=== PATIENT | male | born 1985 | race Caucasian/White ===

== ENCOUNTER 2023-02-04 08:46 | Emergency (ER) | payer OTHER, SELFPAY ==
--- NOTE | ~2023-02-04 | XR_ITS ---
XR chest 2V DATE: 02/04/2023 09:15 INDICATION: Cough, congestion TECHNIQUE: 2 views COMPARISON: 11/23/2009 2 view chest FINDINGS: There is an approximately 4 cm cavitary lesion in the left lung apex. Otherwise no pulmonary infiltrate or consolidation or mass density. No hilar or mediastinal enlargeme nt. Bilateral hyperinflation. No pleural effusion or pneumothorax. Normal heart size. There is mild levoscoliosis of the upper thoracic spine. There is mild lower thoracic dextroscoliosi s. IMPRESSION: Cavitary lesion of left lung apex; differential diagnosis includes infectious, neoplastic or inflammatory etiology Bilateral hyperinflation suggesting obstructive airways disease Reviewed, dictated and finalized at location L.
--- NOTE | 2023-02-04 08:48 | ED.SOB ---
HPI - SOB/Dyspnea General Chief Complaint: Upper Respiratory Infection Stated Complaint: Pneumonia symptoms Time Seen by Provider: 02/04/23 08:47 Source: patient Mode of arrival: ambulatory Limitations: no limitations History of Present Illness HPI Narrative: Mr. Alcazar is a 37-year-old male patient presenting to the clinic today with complaints of possible pneumonia. He reports he is having some left-sided thoracic back pain with inspiration, productive cough with dark brown phlegm, fatigue, and decreased appetite. No recent weight loss. No known fever or chills per patient. States he has had fatigue for the past 5 days but has gradually gotten worse the past 2 days. No known exposure to anyone with COVID, flu, or strep. Rates pain 5-10 currently. Smokes THC daily. Related Data Home Medications Medication Instructions Recorded Confirmed No Home Medications 02/04/23 02/04/23 Allergies Allergy/AdvReac Type Severity Reaction Status Date / Time NKDA Allergy Mild Other Uncoded 02/04/23 09:02 Review of Systems Review of Systems: Pertinent positives per HPI. Patient denies any fever, chills, rash, headache, visual changes, dizziness, chest pain, palpitations, nausea, vomiting, diarrhea, constipation, abdominal pain, or any urinary issues. PMFSH Comments At the time of my signature, I reviewed and agree with the nursing past medical, surgical, social, and family history. There is no relevant family history pertinent to the patient complaint. Exam Narrative: General: Well-developed, thin, in no apparent distress, non toxic appearing Head: Normocephalic, atraumatic Eyes: Pupils equally round and reactive to light bilaterally, EOM intact, sclera and conjunctive clear, no discharge, lids normal Ears: TMs intact and clear, ear canals clear, no drainage, grossly hearing normal. Nose: Nares patent, no discharge, no inflammation, no sinus tenderness. Mouth: Oral pharynx without lesions or masses, good dentition, MMM. Neck: Supple, trachea midline, no enlargement of anterior or posterior cervical nodes, no thyroid masses or goiter palpable. Cardio: Tachycardic-Regular rate and rhythm, s1 and s2 normal, no murmur appreciated. Resp: Lung sounds diminished with faint crackle to the left posterior lobe, no rhonchi, wheezing or rubs Course Course Emergency Course: Portions of this record may have been created with voice recognition software. Level of Care: Express Care Visit Vital Signs Vital signs: Vital signs reviewed Transfer Transfered to: [facility] Transportation: Other (private car) Transfer rationale: Cough with purulent sputum, mild shortness of breath, fatigue, decrease appetite, cavitary lesion to left lung apex. Differential dx- infection, inflammation, or neoplastic. Accepting physician: Dr. Gaviria Transfer comments: transfer via private car. MDM - SOB/Dyspnea MDM Narrative Medical decision making narrative: At the time of visit patient is resting comfortably on exam table. COVID testing was negative in the clinic today. Chest x-ray was shows a cavitary lesion measuring approximately 4 cm to the left lung apex with differential diagnoses of infection, neoplastic, or inflammatory condition. Does show COPD changes as well. He has a productive cough with purulent phlegm, fatigue, decreased appetite, and thoracic back pain with inspiration. Patient does not have a primary care provider. Recommend transfer to the ER for CT and labs to r/o differentials. Patient agrees to transfer. Would like to be transferred to [facility]. Contacted charge nurse Haider and report was given for continuity of care. Dr. Gaviria accepts patient for transfer. Differential Diagnosis Differential diagnosis: Likely acute exacerbation of chronic obstructive airways disease, congestive heart failure, community acquired pneumonia, asthma with exacerbation, pulmonary embolism and other (COVID) Imaging Data Radiologist's im
[2023-02-04 09:05] VITALS: BP 119/84; PULSE 109; RESP 16; TEMP 36.7; O2SAT 98
== END 2023-02-04 09:50 | disposition short-term general hospital (02) ==
PROVIDERS: Emergency Provider Nurse Practitioner Family
DX: R06.02 Shortness of breath (principal); R05.9 Cough, unspecified; M54.6 Pain in thoracic spine; R91.1 Solitary pulmonary nodule; Z20.822 Contact with and (suspected) exposure to COVID-19
CPT/HCPCS: 71046; 87426; 99212; C9803; G0463

== ENCOUNTER 2023-02-04 10:16 | Inpatient (IN) | payer OTHER, SELFPAY ==
[2023-02-04] VITALS (11 sets, daily range): BP systolic 115–133; BP diastolic 58–87; PULSE 87–102; RESP 16–18; TEMP 36.8–38.1; O2SAT 96–100; BMI 21.4
--- NOTE | ~2023-02-04 | CT_ITS ---
EXAMINATION:CT diagnostic chest wo con DATE: 02/04/2023 18:15 INDICATION: Left lung cavitary mass. TECHNIQUE: Computed tomography (CT) of the chest was performed without intravenous contrast. Automate d exposure control and iterative reconstruction technique were employed. The dose-length product (DLP ) was 170.31 mGy-cm. COMPARISON: Chest 2 views 02/04/2023 FINDINGS: There is mild atelectasis in the lower lobes. There is a thick-walled cavitary mass in left lung upper lobe with surrounding groundglass opacities. There is a trace left pleural effusion. The heart size is normal. No pericardial effusion. There is material in the esophagus. There is a 2.8 cm mass in right adrenal gland measuring low-attenuation, consistent with an adenoma. There is levoscoli osis of upper thoracic spine. IMPRESSION: 1. Thick-walled cavitary mass in left lung upper lobe with surrounding groundglass opacities, most li [place] cavitary pneumonia. Malignancy is less likely. Follow-up radiographs are recommended to confirm resolution. Reviewed, dictated and finalized at location E. IMPRESSION: 1. Thick-walled cavitary mass in left lung upper lobe with surrounding groundgl ass opacities, most likely cavitary pneumonia. Malignancy is less likely. Follo w-up radiographs are recommended to confirm resolution.
--- NOTE | ~2023-02-04 | XR_ITS ---
Portable chest x-ray Comparison: 02/04/2023 Clinical History: Cavitary lesion Findings: Left upper lobe cavitary lesion is without significant interval change from prior exam. Ri ght lung remains clear. Cardiomediastinal silhouette is stable. Bones and soft tissues are unremarka ble. Impression: Left upper lobe cavitary lesion, essentially stable from prior exam. Reviewed, dictated and finalized at location . Impression: Left upper lobe cavitary lesion, essentially stable from prior exam.
--- NOTE | 2023-02-04 10:29 | ECG_ITS ---
Measurements Intervals [place] Rate: 85 P: 82 NJ: 161 QRS: 91 QRSD: 84 T: 45 QT: 352 QTc: 421 Interpretive Statements SINUS RHYTHM LEFT ATRIAL ENLARGEMENT [-0.15mV P WAVE IN V1/V2] BORDERLINE RIGHT AXIS DEVIATION [QRS AXIS > 90] POSSIBLE RIGHT VENTRICULAR CONDUCTION DELAY [RSR (QR) IN V1/V2] NO PREVIOUS ECG AVAILABLE FOR COMPARISON Electronically Signed On 02-04-2023 15:04:41 CDT by Marcello Kirby M.D.
[2023-02-04 11:36] LABS: Basophils Absolute Auto 0.1 K/mm3 (0.0-0.1); Basophils Percent Auto 0.6 % (0.2-1.2); Eosinophils Percent Auto 0.1 % (0-4.4); Hematocrit 44.3 % (42.0-52.0); Hemoglobin 14.5 g/dL (14.0-18.0); Immature Granulocyte Percent A 0.6 % (0-0.5); Mean Corpuscular HGB Conc 32.7 g/dl (32-36); Mean Corpuscular Hemoglobin 30.1 pg (26-34); Mean Corpuscular Volume 92.1 fl (80-100); Mean Platelet Volume 9.2 fl (7.4-10.4); Monocytes Absolute Auto 1.5 K/mm3 (0.1-0.6); Monocytes Percent Auto 8.5 % (2.6-8.5); Neutrophils Absolute Auto 14.3 K/mm3 (1.3-6.7); Neutrophils Percent Auto 82.2 % (45.5-73.1); Platelet Count Result 305 k/mm3 (150-375); Red Blood Count 4.81 M/mm3 (4.6-6.20); Red Cell Distribution Width 11.9 % (11.5-14.5); White Blood Count 17.4 K/mm3 (4.5-10.0)
[2023-02-04 11:45] LABS: Anion Gap 10 mmol/L (8-16); Blood Urea Nitrogen 13 mg/dL (9-20); Carbon Dioxide 28 mmol/L (22-30); Chloride 95 mmol/L (98-107); Estimated CRCL calculation 94 ml/min; Potassium 4.1 mmol/L (3.4-5.0); Sodium 133 mmol/L (137-145)
[2023-02-04 11:46] LABS: Alanine Aminotransferase 17 U/L (6-50); Albumin Level 4.5 g/dL (3.5-5.1); Alkaline Phosphatase 80 U/L (38-126); Aspartate Amino Transferase 22 U/L (17-59); Bilirubin,Total 1.4 mg/dL (0.2-1.3); Estimated Glomerular Filt Rate > 60; Glucose 98 mg/dL (65-110)
--- NOTE | 2023-02-04 12:45 | ED.GENADULT ---
HPI - General Adult General Chief complaint: Recheck/Abnormal Lab/Rx Stated complaint: Cough, fatigue Time Seen by Provider: 02/04/23 12:05 Source: patient Mode of arrival: ambulatory Limitations: no limitations History of Present Illness HPI narrative: 37 years old white male drove himself to the emergency room complaining of fever, chills, decreased appetite, lethargy for the last 5 days with productive cough of dark sputum. Patient lives with asymptomatic family, history of GERD and acid reflux and aspiration pneumonia is suspected he does not smoke or drink but uses marijuana daily. Related Data Home Medications Medication Instructions Recorded Confirmed No Home Medications 02/04/23 02/04/23 Allergies Allergy/AdvReac Type Severity Reaction Status Date / Time NKDA Allergy Mild Other Uncoded 02/04/23 12:02 Review of Systems Review of Systems: All systems reviewed & are unremarkable except as noted in HPI and below Exam Narrative: General appearance: Well-developed, well-nourished Skin: Normal color Head: Normocephalic, nontraumatic Eyes: Clear conjunctiva ENT: Oropharynx normal, ears normal, nose normal Neck: Supple, nontender Chest and respiratory: Airway patent, no respiratory distress, no accessory muscle use Heart: Regular rate/rhythm Abdomen: Soft, nontender, no organomegaly, quiet bowel sounds Vascular: Normal peripheral pulses, normal capillary refill. Musculoskeletal: Normal range of motion, nontender back Neurologic: Alert and oriented ?3, PATIENT ACCESS REPRESENTATIVE is normal as tested, no gross motor deficit Course Course Emergency Course: Stable Reevaluation(s) Reevaluation #1: No new changes compared to on arrival Date: 02/04/23 Time: 13:12 Vital Signs Vital signs: Vital Signs Temperature 37.1 C 02/04/23 10:26 Pulse Rate 91 02/04/23 10:26 Respiratory Rate 16 02/04/23 10:26 Blood Pressure 115/71 02/04/23 10:26 Pulse Oximetry 100 02/04/23 10:26 Temperature 37.1 C 02/04/23 10:26 Pulse Rate 90 02/04/23 12:46 Respiratory Rate 16 02/04/23 12:46 Blood Pressure 133/82 02/04/23 12:46 Pulse Oximetry 97 02/04/23 12:46 Medical Decision Making [facility] Narrative Medical decision making narrative: Patient presents with fever, chills and a productive cough over the last 5 days, chest x-ray showed cavitary lesion at the right apex which could be infectious, malignancy, abscess. History of GERD, aspiration pneumonia is my concern versus abscess formation. Unasyn IV started, patient to be admitted to hospitalist Differential Diagnosis Differential Diagnosis: Pneumonia, abscess, malignancy, Medical Records Medical records reviewed: Yes I reviewed the external patient's medical records. Vital Signs Vital Signs: Vital Signs Temperature 37.1 C 02/04/23 10:26 Pulse Rate 91 02/04/23 10:26 Respiratory Rate 16 02/04/23 10:26 Blood Pressure 115/71 02/04/23 10:26 Pulse Oximetry 100 02/04/23 10:26 Temperature 37.1 C 02/04/23 10:26 Pulse Rate 90 02/04/23 12:46 Respiratory Rate 16 02/04/23 12:46 Blood Pressure 133/82 02/04/23 12:46 Pulse Oximetry 97 02/04/23 12:46 Lab Data Lab results reviewed: Yes I reviewed the patient's lab results. 02/04/23 11:26 02/04/23 11:26 Labs: Lab Results 02/04/23 Range/Units 11:26 WBC 17.4 H (4.5-10.0) K/mm3 RBC 4.81 (4.6-6.20) M/mm3 Hgb 14.5 (14.0-18.0) g/dL Hct 44.3 (42.0-52.0) % MCV 92.1 (80-100) fl MCH 30.1 (26-34) pg MCHC 32.7 (32-36) g/dl RDW 11.9 (11.5-14.5) % Plt Count 305 (150-375) k/mm3 MPV 9.2 (7.4-10.4) fl Immature Gran % (Auto) 0.6 H (0-0.5) %
[2023-02-04] MEDS: AZITHROMYCIN 500 MG/NS 250 ML 500 MG/250 ML BAG 250 MG IVPB (13:22)
[2023-02-04] MEDS: ALBUTEROL SULFATE NEB 2.5 MG/3 ML INH INHALATION ×2 (13:25→20:25)
[2023-02-04] MEDS: AMPICILLIN SULB 3 GM/NS 100 ML 3 GM/100 ML VIAL IVPB ×2 (14:41→21:10)
--- NOTE | 2023-02-04 15:47 | PM.IMHP ---
H&P: HPI History of Present Illness Date/Time: 02/04/23 15:00 Chief Complaint: Abnormal chest x-ray. Narrative: This is a pleasant 37-year-old male with longstanding history of GERD status post endoscopic treatment approximately 4 or 5 years ago who presented to the emergency department for evaluation of an abnormal chest x-ray. The patient provides the following history. He has not felt well for approximately 5 days with generalized malaise, decreased energy, and chills. Yesterday he developed several other symptoms to include cough productive of dark brown phlegm, left-sided pleuritic chest pain, poor appetite, drenching sweats, and fever to 103?. He was seen at urgent care today where chest x-ray showed a cavitary lesion in the left apex and he was referred to the ED for further evaluation. COVID test was negative. WBC count was 17.4. He was given a dose of azithromycin and ceftriaxone and he is being admitted in this setting for further treatment of presumed cavitary pneumonia. With further questioning he denies sick contacts, recent travel, overseas travel, weight loss, hemoptysis, exposure to tuberculosis, broken teeth, and known dental caries. He continues to have ongoing issues with GERD and reports frequent regurgitation even at nighttime. He cannot recall a time recently when he aspirated however. Review of Systems Review of Systems: Twelve systems were reviewed and are negative except for as per HPI. [facility] Past Medical History Medical History (Updated 02/04/23 @ 20:42 by Julianna Mancia PA-C) Gastroesophageal reflux disease Surgical History Surgical History (Updated 02/04/23 @ 20:38 by Julianna Mancia PA-C) History of endoscopy Patient reportedly had endoscopic treatment for GERD about 5 years ago. Family History Family History Grandparent Heart disease Diabetes mellitus Grandparent Heart disease Social History Social History (Updated 02/04/23 @ 20:39 by Julianna Mancia PA-C) Social History: Surrogate medical decision maker: Tana White, spouse. Code status: Full code. Smoking packs per day: 0.1 Smoking cigarettes per day: 2.0 Years smoked: 20 Smoking pack-years: 2.00 Smoking status: Current some day smoker Alcohol intake: former Substance use: current Substance use type: marijuana Last use: 01/31/2023 Lack of Transportation: No Lack of Food: Never True Current Housing: I Have Housing Concerned About Future Housing: No Difficulty Paying Gas/Electric Bills: No Difficulty Paying for Meds: No Currently Unemployed: No Education: High School Diploma/GED Difficulty w/ Childcare or Family Care: No Additional living arrangements comments: Lives with spouse and 2 children. 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 Spiritual care concerns: No Meds Home Medications and Allergies Home Medications Medication Instructions Recorded Confirmed Type No Home Medications 02/04/23 02/04/23 History Allergies Allergy/AdvReac Type Severity Reaction Status Date / Time No Known Drug Allergies Allergy Verified 02/04/23 13:26 Vital Signs Vital Signs - 24 hr 02/04/23 10:26 02/04/23 12:02 02/04/23 12:46 Temperature 98.8 F Pulse Rate 91 87 90 Respiratory Rate 16 16 16 Blood Pressure 115/71 119/87 133/82 Pulse Oximetry 100 98 97 Oxygen Delivery Fraction of Inspired Oxygen 02/04/23 13:25 02/04/23 13:33 02/04/23 13:33 Temperature Pulse Rate 89 92 Respiratory Rate 16 16 Blood Pressure Pulse Oximetry 96 Oxygen Delivery Room Air Fraction of Inspired Oxygen 21 02/04/23 13:01 Temperature Pulse Rate Respiratory Rate 18 Blood Pressure 121/76 Pulse Oximetry 100 Oxygen Delivery Fraction of Inspired Oxygen Exam Narrative: General: Mildly ill-appearing gentleman sitting up in bed in no acute distress. Weight: 67.9
--- NOTE | 2023-02-04 17:57 | ADMGEN ---
This patient, Cullen Alcazar, was admitted to [facility] Surg Room 328-01. Patient/family oriented to hospital policies and general routines including ID bracelet, bed and alarms, visiting hours, pain management, procedures, bathroom and other care routines, personal items, smoking policy, room service/diet, and visiting hours. Information on how to activate the Rapid Response Team has been discussed. Patient/Family are encouraged to report perceived risks to care and to ask questions if they do not understand what they are told or what they should do.
[2023-02-04] MEDS: SODIUM CHLORIDE 0.9% IV 1,000 ML 125 ML IV CONT (18:28)
[2023-02-04] MEDS: ACETAMINOPHEN 325 MG TABLET 650 MG PO (21:37)
[2023-02-05] VITALS (12 sets, daily range): BP systolic 101–116; BP diastolic 61–72; PULSE 82–104; RESP 16–18; TEMP 36.9–37.2; O2SAT 95–97
[2023-02-05] MEDS: ALBUTEROL SULFATE NEB 2.5 MG/3 ML INH INHALATION ×4 (02:21→19:52)
[2023-02-05] MEDS: SODIUM CHLORIDE 0.9% IV 1,000 ML 125 ML (03:32)
[2023-02-05] MEDS: AMPICILLIN SULB 3 GM/NS 100 ML 3 GM/100 ML VIAL IVPB ×4 (03:32→21:59)
[2023-02-05 06:03] LABS: Hematocrit 38.8 % (42.0-52.0); Hemoglobin 12.8 g/dL (14.0-18.0); Mean Corpuscular Hemoglobin 29.8 pg (26-34); Mean Corpuscular Volume 90.2 fl (80-100); Mean Platelet Volume 9.2 fl (7.4-10.4); Platelet Count Result 262 k/mm3 (150-375); Red Cell Distribution Width 11.8 % (11.5-14.5); White Blood Count 12.8 K/mm3 (4.5-10.0)
[2023-02-05 06:14] LABS: Anion Gap 9 mmol/L (8-16); Blood Urea Nitrogen 8 mg/dL (9-20); Calcium 7.9 mg/dL (8.4-10.2); Carbon Dioxide 27 mmol/L (22-30); Chloride 99 mmol/L (98-107); Estimated CRCL calculation 135 ml/min; Estimated Glomerular Filt Rate > 60; Glucose 109 mg/dL (65-110); Magnesium 2.2 mg/dL (1.6-2.3); Potassium 3.4 mmol/L (3.4-5.0); Sodium 135 mmol/L (137-145)
--- NOTE | 2023-02-05 09:00 | PM.IMPN ---
Progress Note: A&P Assessment and Plan (1) Cavitary pneumonia: Code(s): J18.9 - Pneumonia, unspecified organism; J98.4 - Other disorders of lung Status: Acute Assessment and Plan: CT with thick walled cavitary mass in left lung upper lobe with surrounding ground glass opacities. patient reports fever, chills, night sweats initially was given Rocephin and azithromycin for CAP, however, he has severe GERD so there were concerns for silent aspiration so antibiotics were broadened to Unasyn. Leukocytosis on admission was 17.4--->12.8 this morning sputum, MRSA and blood cultures pending Add on lactic, CRP, pro-kika Given location and cavitation of lesion will add on AFB testing x 3 and quant gold Pulmonology has been consulted and recommendations are appreciated. TB isolation (2) Gastroesophageal reflux disease: Code(s): K21.9 - Gastro-esophageal reflux disease without esophagitis Status: Acute Assessment and Plan: Chronic issue per patient does not appear to be on medications for this giving Protonix daily IVP while inpatient Says he has had a stricture dilation in the past which has helped with the reflux. He also says he has had aspiration pneumonia related to this. Plan Feeding:regular diet Analgesia:tylenol Thromboembolic prophylaxis: lovenox Ulcer prophylaxis: PPI Glycemic control: NA Bowel regimen: NA Lines: PIV Antibiotics: Unasyn Disposition: Home Subjective Date/time seen: 02/05/23 09:00 Interval history: HPI obtained from chart, This is a pleasant 37-year-old male with longstanding history of GERD status post endoscopic treatment approximately 4 or 5 years ago who presented to the emergency department for evaluation of an abnormal chest x-ray.? The patient provides the following history. He has not felt well for approximately 5 days with generalized malaise, decreased energy, and chills. Yesterday he developed several other symptoms to include cough productive of dark brown phlegm, left-sided pleuritic chest pain, poor appetite, drenching sweats, and fever to 103?. He was seen at urgent care today where chest x-ray showed a cavitary lesion in the left apex and he was referred to the ED for further evaluation. COVID test was negative. WBC count was 17.4. He was given a dose of azithromycin and ceftriaxone and he is being admitted in this setting for further treatment of presumed cavitary pneumonia. With further questioning he denies sick contacts, recent travel, overseas travel, weight loss, hemoptysis, exposure to tuberculosis, broken teeth, and known dental caries. He continues to have ongoing issues with GERD and reports frequent regurgitation even at nighttime. He cannot recall a time recently when he aspirated however. Interval history, 02/05-Seen at the bedside with his for assessment. He does not appear in acute respiratory distress but does appear fatigued. He says that he is feeling somewhat better today than when he 1st started getting sick. He continues to have a cough with dee sputum production and some inspiratory left-sided chest pain. He does feel like the left-sided chest pain has improved since antibiotics. He was able to sit up today without much effort and this he says is improved from a couple of days ago. He denies fevers chills in the last 24 hours. Denies dizziness, headache, chest pain, nausea, vomiting, diarrhea, or constipation. He does say that he has had poor appetite but he is drinking plenty of fluids. Given this cavitary lesion in the left lung apex , I requested pulmonology consult and recommendations are much appreciated. Initiate AFB x3 and obtaining QuantiFERON gold to rule out TB. Review of Systems Review of Systems: All systems reviewed & are unremarkable except as noted in HPI and below Exam Narrative: General: well appearing, well developed, well nourished, appears stated age, appears fatigued HEENT: normocephali
[2023-02-05] MEDS: ENOXAPARIN 40 MG/0.4 ML SYRINGE SUB-Q (09:36)
[2023-02-05] MEDS: PANTOPRAZOLE SODIUM IV 40 MG VIAL IV PUSH (09:36)
[2023-02-05 09:57] LABS: Lactic Acid Reflex 1.7 mmol/L (0.7-2.0)
[2023-02-05 10:19] LABS: Procalcitonin 0.2 ng/mL
--- NOTE | 2023-02-05 11:05 | PC.NURSE ---
Relocated to 309 per wheelchair.
--- NOTE | 2023-02-05 12:07 | PM.CNPUL ---
Assessment and Plan Assessment and plan (1) Cavitary pneumonia: Code(s): J18.9 - Pneumonia, unspecified organism; J98.4 - Other disorders of lung Status: Acute Assessment and Plan: Patient presents with fever, cough, bad tasting phlegm, pleuritic chest pain, leukocytosis and a left upper lobe cavitary lesion with surrounding infiltrate. Patient has 18 pack year tobacco use as well as daily marijuana use. He has no evidence of aspiration, loss of consciousness, chronic weight loss or exposure to tuberculosis. Etiology: Bacterial abscess, tuberculosis, cancer. Plan: Patient is currently afebrile, clinically feels better and his leukocytosis has improved on Unasyn 3 g q.6 which I will continue. Urine Legionella, urine pneumococcal and mycoplasma IgM are pending. COVID antigen is negative. I would place the patient in respiratory isolation. QuantiFERON gold is pending. I will send 3 sputums for AFB. Will follow with you. History of Present Illness History of Present Illness Consult date: 02/05/23 Chief complaint: Cough, fatigue Narrative: 02/05/2023: This is a new pulmonary consult for cavitary pneumonia. 37-year-old man with GERD and no other significant past medical history. Patient had pneumonia 6 years ago was treated with antibiotics as an outpatient recovered 24 hours. At baseline the patient has no respiratory limitations in his activities of daily living and can walk 2 miles and 40 minutes with no respiratory issues. Patient returned from a business trip from [place] on 01/29/2023 and felt tired. On 01/30 patient had fatigue and chills. On 01/31 through 02/02 he he felt the same. On 02/03 the patient developed fever to 103, cough with pleuritic chest pain, no phlegm production, rigors, sweats and bad tasting phlegm. The states his breath smelled sick. On 02/04 he went to urgent care they performed a chest x-ray and sent him [facility] because he had an infiltrate. Patient denies any chronic illnesses. Patient smoked tobacco from [id number] at 3/4 pack per day for total of 18 pack years. Patient smokes daily marijuana at 3-7 inhalations since age 16 on and off. Patient denies any secondhand smoke exposure. Patient denies other illicit drug use. 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 Patient works in the [employer] business. Patient has 2 cats, no exposure to birds. No weight loss. No rashes. No arthritis. No aspirations of liquids or solids when he eats. He has no known tuberculosis exposures. Patient traveled to [place] in November for a week and wetting. Patient traveled to [place] in September. In the emergency department patient had a blood pressure of 115/71, respiratory rate was 16, pulse oximetry was 97% on room air and temperature was 37.1?. White blood cell count was 17.4, creatinine was 0.9. Eosinophils 0.1%. Chest x-ray showed a cavitary lesion in the left lung. CT scan showed a thick-walled cavity in the left upper lobe with surrounding infiltrate. Trace left pleural effusion. Patient was started on ceftriaxone, azithromycin which were discontinued and he was placed on Unasyn 3 g q.6 hours. 02/05: Currently the patient tells me that he is slightly better. His shortness of breath is better, his left pleuritic chest pain is better, his cough is decreased his phlegm is unchanged and his fatigue is unchanged. He is on room air with saturations 97%. White blood cell count is 12.8. He was febrile last night at 38.1 and is currently 37.1. 02/04/23: EXAMINATION:CT diagnostic chest wo con DATE: 02/04/2023 18:15 INDICATION: Left lung cavitary mass. TECHNIQUE: Computed tomography (CT) of the chest was performed without intravenous contrast. Automated exposure control and iterative reconstruction technique were employed. The dose-length product (DLP) was 170.31 mGy-cm. COMPARISON: Chest 2 views 02/05/20
[2023-02-06] MEDS: ALBUTEROL SULFATE NEB 2.5 MG/3 ML INH INHALATION (01:51)
[2023-02-06 01:52] VITALS: PULSE 90; RESP 16
[2023-02-06] MEDS: AMPICILLIN SULB 3 GM/NS 100 ML 3 GM/100 ML VIAL IVPB ×4 (03:24→21:17)
[2023-02-06] MEDS: SODIUM CHLOR 3% 15 ML NEB (RESPIRATORY THERAPY) 6 ML INHALATION (05:19)
[2023-02-06 05:22] VITALS: PULSE 88; RESP 16
[2023-02-06 05:28] VITALS: BP 99/61; PULSE 78; RESP 20; TEMP 36.6; O2SAT 100
[2023-02-06 06:25] LABS: Basophils Absolute Auto 0.1 K/mm3 (0.0-0.1); Basophils Percent Auto 0.7 % (0.2-1.2); Eosinophils Percent Auto 0.2 % (0-4.4); Hematocrit 37.3 % (42.0-52.0); Hemoglobin 12.1 g/dL (14.0-18.0); Immature Granulocyte Absolute 0.04 K/mm3 (0.00-0.031); Immature Granulocyte Percent A 0.4 % (0-0.5); Lymphocytes Absolute Auto 1.46 K/mm3 (0.9-3.2); Lymphocytes Percent Auto 13.7 % (18.3-44.2); Mean Corpuscular HGB Conc 32.4 g/dl (32-36); Mean Corpuscular Hemoglobin 29.7 pg (26-34); Mean Corpuscular Volume 91.4 fl (80-100); Mean Platelet Volume 9.6 fl (7.4-10.4); Monocytes Absolute Auto 1.3 K/mm3 (0.1-0.6); Monocytes Percent Auto 11.9 % (2.6-8.5); Neutrophils Absolute Auto 7.8 K/mm3 (1.3-6.7); Neutrophils Percent Auto 73.1 % (45.5-73.1); Platelet Count Result 295 k/mm3 (150-375); Red Blood Count 4.08 M/mm3 (4.6-6.20); Red Cell Distribution Width 11.9 % (11.5-14.5); White Blood Count 10.6 K/mm3 (4.5-10.0)
[2023-02-06 06:39] LABS: Alanine Aminotransferase 13 U/L (6-50); Albumin Level 3.6 g/dL (3.5-5.1); Alkaline Phosphatase 71 U/L (38-126); Anion Gap 7 mmol/L (8-16); Aspartate Amino Transferase 20 U/L (17-59); Bilirubin,Total 0.8 mg/dL (0.2-1.3); Blood Urea Nitrogen 6 mg/dL (9-20); Calcium 8.2 mg/dL (8.4-10.2); Carbon Dioxide 27 mmol/L (22-30); Chloride 101 mmol/L (98-107); Estimated CRCL calculation 117 ml/min; Estimated Glomerular Filt Rate > 60; Glucose 110 mg/dL (65-110); Magnesium 2.4 mg/dL (1.6-2.3); Potassium 3.5 mmol/L (3.4-5.0); Sodium 135 mmol/L (137-145)
[2023-02-06 08:00] VITALS: O2SAT 100
--- NOTE | 2023-02-06 08:03 | PM.IMPN ---
Progress Note: A&P Assessment and Plan (1) Cavitary pneumonia: Code(s): J18.9 - Pneumonia, unspecified organism; J98.4 - Other disorders of lung Status: Acute Assessment and Plan: CT with thick walled cavitary mass in left lung upper lobe with surrounding ground glass opacities. patient reports fever, chills, night sweats initially was given Rocephin and azithromycin for CAP, however, he has severe GERD so there were concerns for silent aspiration so antibiotics were broadened to Unasyn. Leukocytosis on admission was 17.4--->12.8--->10 this morning 02/06 sputum, MRSA and blood cultures pending Add on lactic, CRP, pro-kika. CRP elevated at 22. Will trend. Procal 0.2 and lactic negative. Given location and cavitation of lesion will add on AFB testing x 3 and quant gold Pulmonology has been consulted and recommendations are appreciated. TB isolation (2) Gastroesophageal reflux disease: Code(s): K21.9 - Gastro-esophageal reflux disease without esophagitis Status: Acute Assessment and Plan: Chronic issue per patient does not appear to be on medications for this giving Protonix daily IVP while inpatient Says he has had a stricture dilation in the past which has helped with the reflux. He also says he has had aspiration pneumonia related to this. Plan Feeding:regular diet Analgesia:tylenol Thromboembolic prophylaxis: lovenox Ulcer prophylaxis: PPI Glycemic control: NA Bowel regimen: NA Lines: PIV Antibiotics: Unasyn Disposition: Home awaiting quantiFERON gold results AFB x 3 if possible Continue IV abx Subjective Date/time seen: 02/06/23 08:03 Interval history: HPI obtained from chart, This is a pleasant 37-year-old male with longstanding history of GERD status post endoscopic treatment approximately 4 or 5 years ago who presented to the emergency department for evaluation of an abnormal chest x-ray.? The patient provides the following history. He has not felt well for approximately 5 days with generalized malaise, decreased energy, and chills. Yesterday he developed several other symptoms to include cough productive of dark brown phlegm, left-sided pleuritic chest pain, poor appetite, drenching sweats, and fever to 103?. He was seen at urgent care today where chest x-ray showed a cavitary lesion in the left apex and he was referred to the ED for further evaluation. COVID test was negative. WBC count was 17.4. He was given a dose of azithromycin and ceftriaxone and he is being admitted in this setting for further treatment of presumed cavitary pneumonia. With further questioning he denies sick contacts, recent travel, overseas travel, weight loss, hemoptysis, exposure to tuberculosis, broken teeth, and known dental caries. He continues to have ongoing issues with GERD and reports frequent regurgitation even at nighttime. He cannot recall a time recently when he aspirated however. Interval history, 02/05-Seen at the bedside with his for assessment. He does not appear in acute respiratory distress but does appear fatigued. He says that he is feeling somewhat better today than when he 1st started getting sick. He continues to have a cough with dee sputum production and some inspiratory left-sided chest pain. He does feel like the left-sided chest pain has improved since antibiotics. He was able to sit up today without much effort and this he says is improved from a couple of days ago. He denies fevers chills in the last 24 hours. Denies dizziness, headache, chest pain, nausea, vomiting, diarrhea, or constipation. He does say that he has had poor appetite but he is drinking plenty of fluids. Given this cavitary lesion in the left lung apex , I requested pulmonology consult and recommendations are much appreciated. Initiate AFB x3 and obtaining QuantiFERON gold to rule out TB. 02/06-I spoke with Dr Villatoro, pulmonology and discussed current treatment plan. Will shaun
[2023-02-06] MEDS: PANTOPRAZOLE SODIUM IV 40 MG VIAL IV PUSH (09:12)
--- NOTE | 2023-02-06 10:43 | PM.PNPUL ---
Progress Note: A&P Assessment and Plan (1) Cavitary pneumonia: Code(s): J18.9 - Pneumonia, unspecified organism; J98.4 - Other disorders of lung Status: Acute Assessment and Plan: Patient presents with fever, cough, bad tasting phlegm, pleuritic chest pain, leukocytosis and a left upper lobe posterior segment cavitary lesion with small air fluid level and with surrounding infiltrate. Patient has 18 pack year tobacco use as well as daily marijuana use. He has no evidence of aspiration, loss of consciousness, chronic weight loss, dental cavities or abscesses or exposure to tuberculosis. Etiology: Bacterial abscess, tuberculosis, cancer. Plan: Patient is currently afebrile, clinically feels better and his leukocytosis has improved on Unasyn 3 g q.6 which I will continue. Urine Legionella, urine pneumococcal and mycoplasma IgM are pending. COVID antigen is negative. I would place the patient in respiratory isolation. QuantiFERON gold is pending. I will send 3 sputums for AFB. 02/06: Patient tells me he is better. He is 75% back to normal. He is tired, he is afebrile, the cough is decreased, the phlegm is decreased and his left pleuritic chest pain is improved. His white blood cell count is 10.6, his creatinine is 0.7. He states the nebulized albuterol makes him feel no different. Blood and sputum cultures pending. Plan: Patient is afebrile since 02/04 at 10:00 p.m., leukocytosis has improved and he clinically feels better. He is having a good clinical response to Unasyn. Continue Unasyn 3 g q.6 hours, day 3. QuantiFERON gold and AFB smears. I will change his albuterol nebulizers to p.r.n.. Discussed with Keyana Garza, Will follow with you. Subjective Date/time seen: 02/06/23 10:43 Interval history: 02/05/2023:? This is a new pulmonary consult for cavitary pneumonia.? 37-year-old man with GERD and no other significant past medical history.? Patient had pneumonia 6 years ago was treated with antibiotics as an outpatient recovered 24 hours.? At baseline the patient has no respiratory limitations in his activities of daily living and can walk 2 miles and 40 minutes with no respiratory issues. Patient returned from a business trip from [place] on 01/29/2023 and felt tired.? On 01/30 patient had fatigue and chills.? On 01/31 through 02/02 he he felt the same.? On 02/03 the patient developed fever to 103, cough with pleuritic chest pain, no phlegm production, rigors, sweats and bad tasting phlegm.? The states his breath smelled sick.? On 02/04 he went to urgent care they performed a chest x-ray and sent him to [facility] because he had an infiltrate. Patient denies any chronic illnesses.? Patient smoked tobacco from [id number] at 3/4 pack per day for total of 18 pack years.? Patient smokes daily marijuana at 3-7 inhalations since age 16 on and off.? Patient denies any secondhand smoke exposure.? Patient denies other illicit drug use.? 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 Patient works in the [employer] business.? Patient has 2 cats, no exposure to birds.? No weight loss.? No rashes.? No arthritis.? No aspirations of liquids or solids when he eats.? He has no known tuberculosis exposures. Patient traveled to [place] in November for a week and wetting.? Patient traveled to [place] in September. In the emergency department patient had a blood pressure of 115/71, respiratory rate was 16, pulse oximetry was 97% on room air and temperature was 37.1?.? White blood cell count was 17.4, creatinine was 0.9.? Eosinophils 0.1%.? Chest x-ray showed a cavitary lesion in the left lung.? CT scan showed a thick-walled cavity in the left upper lobe with surrounding infiltrate.? Trace left pleural effusion.? Patient was started on ceftriaxone, azithromycin which were discontinued and he was placed on Unasyn 3 g q.6 hours. 02/05:? Currently the patient tells me that he is slightly be
[2023-02-06 14:00] VITALS: BP 100/65; PULSE 76; RESP 14; TEMP 37; O2SAT 97
[2023-02-06 21:20] VITALS: BP 102/63; PULSE 81; RESP 16; TEMP 37; O2SAT 98
[2023-02-07] MEDS: AMPICILLIN SULB 3 GM/NS 100 ML 3 GM/100 ML VIAL IVPB ×4 (03:10→21:25)
[2023-02-07 05:30] VITALS: BP 113/60; PULSE 97; RESP 16; TEMP 36.7; O2SAT 98
[2023-02-07 05:37] VITALS: PULSE 92; RESP 18
[2023-02-07] MEDS: SODIUM CHLOR 3% 15 ML NEB (RESPIRATORY THERAPY) 6 ML INHALATION (05:37)
[2023-02-07 05:56] VITALS: PULSE 96; RESP 16
[2023-02-07 06:34] LABS: Basophils Absolute Auto 0.1 K/mm3 (0.0-0.1); Basophils Percent Auto 0.6 % (0.2-1.2); Eosinophils Absolute Auto 0.1 K/mm3 (0-0.3); Eosinophils Percent Auto 0.6 % (0-4.4); Hematocrit 40.2 % (42.0-52.0); Hemoglobin 12.8 g/dL (14.0-18.0); Immature Granulocyte Absolute 0.08 K/mm3 (0.00-0.031); Immature Granulocyte Percent A 0.7 % (0-0.5); Lymphocytes Absolute Auto 1.65 K/mm3 (0.9-3.2); Lymphocytes Percent Auto 14.4 % (18.3-44.2); Mean Corpuscular HGB Conc 31.8 g/dl (32-36); Mean Corpuscular Hemoglobin 29.4 pg (26-34); Mean Corpuscular Volume 92.4 fl (80-100); Mean Platelet Volume 9.4 fl (7.4-10.4); Monocytes Absolute Auto 0.9 K/mm3 (0.1-0.6); Monocytes Percent Auto 8.2 % (2.6-8.5); Neutrophils Absolute Auto 8.6 K/mm3 (1.3-6.7); Neutrophils Percent Auto 75.5 % (45.5-73.1); Platelet Count Result 351 k/mm3 (150-375); Red Blood Count 4.35 M/mm3 (4.6-6.20); Red Cell Distribution Width 11.8 % (11.5-14.5); White Blood Count 11.4 K/mm3 (4.5-10.0)
[2023-02-07 07:03] LABS: Alanine Aminotransferase 17 U/L (6-50); Albumin Level 3.8 g/dL (3.5-5.1); Alkaline Phosphatase 71 U/L (38-126); Anion Gap 5 mmol/L (8-16); Aspartate Amino Transferase 23 U/L (17-59); Bilirubin,Total 0.7 mg/dL (0.2-1.3); Blood Urea Nitrogen 8 mg/dL (9-20); Calcium 8.8 mg/dL (8.4-10.2); Carbon Dioxide 30 mmol/L (22-30); Chloride 100 mmol/L (98-107); Estimated CRCL calculation 117 ml/min; Estimated Glomerular Filt Rate > 60; Glucose 104 mg/dL (65-110); Potassium 4.1 mmol/L (3.4-5.0); Sodium 135 mmol/L (137-145)
[2023-02-07] MEDS: PANTOPRAZOLE SODIUM IV 40 MG VIAL IV PUSH (08:49)
--- NOTE | 2023-02-07 09:50 | PM.PNPUL ---
Progress Note: A&P Assessment and Plan (1) Cavitary pneumonia: Code(s): J18.9 - Pneumonia, unspecified organism; J98.4 - Other disorders of lung Status: Acute Assessment and Plan: Patient presents with fever, cough, bad tasting phlegm, pleuritic chest pain, leukocytosis and a left upper lobe posterior segment cavitary lesion with small air fluid level and with surrounding infiltrate. Patient has 18 pack year tobacco use as well as daily marijuana use. He has no evidence of aspiration, loss of consciousness, chronic weight loss, dental cavities or abscesses or exposure to tuberculosis. Etiology: Bacterial abscess, tuberculosis, cancer. Plan: Patient is currently afebrile, clinically feels better and his leukocytosis has improved on Unasyn 3 g q.6 which I will continue. Urine Legionella, urine pneumococcal and mycoplasma IgM are pending. COVID antigen is negative. I would place the patient in respiratory isolation. QuantiFERON gold is pending. I will send 3 sputums for AFB. 02/06: Patient tells me he is better. He is 75% back to normal. He is tired, he is afebrile, the cough is decreased, the phlegm is decreased and his left pleuritic chest pain is improved. His white blood cell count is 10.6, his creatinine is 0.7. He states the nebulized albuterol makes him feel no different. Blood and sputum cultures pending. Plan: Patient is afebrile since 02/04 at 10:00 p.m., leukocytosis has improved and he clinically feels better. He is having a good clinical response to Unasyn. Continue Unasyn 3 g q.6 hours, day 3. QuantiFERON gold and AFB smears. I will change his albuterol nebulizers to p.r.n.. 02/07: Patient tells me he continues to improve. He feels 80% back to his baseline. At rest he feels normal. He is producing very little phlegm and it does not have a ran said taste any longer. His cough is more pronounced today than yesterday. He is getting stronger and walking in his room. He is on room air with saturations 99%. White blood cell count is 11.4, creatinine is 0.7. Chest x-ray today shows no change in his left upper lobe cavity. Plan: Patient has clinically responded to Unasyn. I will continue 3 g q. 6 hours, day 4 today. We call the lab and the expected QuantiFERON gold completion date is 02/09. In anticipation of this we will switch the patient to Augmentin 875-125 on 02/08. Discussed with Dr. Olsen, Will follow with you. Subjective Date/time seen: 02/07/23 09:50 Interval history: 02/05/2023:? This is a new pulmonary consult for cavitary pneumonia.? 37-year-old man with GERD and no other significant past medical history.? Patient had pneumonia 6 years ago was treated with antibiotics as an outpatient recovered 24 hours.? At baseline the patient has no respiratory limitations in his activities of daily living and can walk 2 miles and 40 minutes with no respiratory issues. Patient returned from a business trip from [place] on 01/29/2023 and felt tired.? On 01/30 patient had fatigue and chills.? On 01/31 through 02/02 he he felt the same.? On 02/03 the patient developed fever to 103, cough with pleuritic chest pain, no phlegm production, rigors, sweats and bad tasting phlegm.? The states his breath smelled sick.? On 02/04 he went to urgent care they performed a chest x-ray and sent him to [facility] because he had an infiltrate. Patient denies any chronic illnesses.? Patient smoked tobacco from [id number] at 3/4 pack per day for total of 18 pack years.? Patient smokes daily marijuana at 3-7 inhalations since age 16 on and off.? Patient denies any secondhand smoke exposure.? Patient denies other illicit drug use.? 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 Patient works in the [employer] business.? Patient has 2 cats, no exposure to birds.? No weight loss.? No rashes.? No arthritis.? No aspirations of liquids or solids when he eats.? He has
--- NOTE | 2023-02-07 10:58 | PM.IMPN ---
Progress Note: A&P Assessment and Plan (1) Cavitary pneumonia: Code(s): J18.9 - Pneumonia, unspecified organism; J98.4 - Other disorders of lung Status: Acute Assessment and Plan: CT with thick walled cavitary mass in left lung upper lobe with surrounding ground glass opacities. patient reports fever, chills, night sweats initially was given Rocephin and azithromycin for CAP, however, he has severe GERD so there were concerns for silent aspiration so antibiotics were broadened to Unasyn. Leukocytosis on admission was 17.4--->12.8--->10 this morning 02/06 sputum, MRSA and blood cultures pending Add on lactic, CRP, pro-kika. CRP elevated at 22. Will trend. Procal 0.2 and lactic negative. Given location and cavitation of lesion will add on AFB testing x 3 and quant gold Pulmonology has been consulted and recommendations are appreciated. TB isolation (2) Gastroesophageal reflux disease: Code(s): K21.9 - Gastro-esophageal reflux disease without esophagitis Status: Acute Assessment and Plan: Chronic issue per patient does not appear to be on medications for this giving Protonix daily IVP while inpatient Says he has had a stricture dilation in the past which has helped with the reflux. He also says he has had aspiration pneumonia related to this. Plan DVT prophylaxis with SCDs GI prophylaxis not indicated Code status full code Subjective Date/time seen: 02/07/23 10:58 Interval history: 37-year-old male with history of GERD presenting with general feeling not well and found to have cavitary pneumonia. No overnight events noted. No chest pain or shortness of breath. No nausea, vomiting or diarrhea. No fevers or chills. Patient feels much better today. Eager to go home. Review of Systems Review of Systems: 12 point review of systems was assessed and was negative except as noted in the HPI Exam Narrative: General: No acute distress, alert and oriented per baseline HEENT: Atraumatic, normocephalic, mucous membranes moist CV: Regular rate and rhythm, S1, S2 Lungs: Somewhat diminished at bases, scattered crackles, no wheeze Abdomen: Soft, nontender, nondistended Extremities: Normal to inspection Skin: No rashes noted, no lesions or wounds seen Psych: Euthymic, normal affect Objective Data Vital Signs Vital Signs: Vital Signs - 24 hr 02/06/23 14:00 02/06/23 21:20 02/07/23 05:37 Temperature 98.6 F 98.6 F Pulse Rate 76 81 92 Respiratory Rate 14 16 18 Blood Pressure 100/65 102/63 Pulse Oximetry 97 98 Oxygen Delivery 02/07/23 05:56 02/07/23 05:30 02/07/23 08:50 Temperature 98.1 F Pulse Rate 96 97 Respiratory Rate 16 16 Blood Pressure 113/60 Pulse Oximetry 98 Oxygen Delivery Room Air Intake/Output Intake/Output: Intake & Output 02/04/23 02/05/23 02/06/23 02/07/23 23:59 23:59 23:59 23:59 Intake Total 500 1758 1138 528 Output Total 750 Balance 500 1008 1138 528 Meds/Results Medications: Active Medications Generic Name Dose Route Start Last Admin Trade Name Freq PRN Reason Stop Dose Admin Acetaminophen 650 mg 02/04/23 13:07 02/04/23 21:37 Acetaminophen 325 Mg Tablet PO 650 mg Q4H PRN Administration Mild Pain (1-3) or Fever Albuterol 2.5 mg 02/06/23 10:50 Albuterol Sulfate Neb 2.5 Mg/3 Ml Inh INHALATION Q6HRT PRN Wheezing Amoxicillin/Clavulanate Potassium 1 tablet 02/08/23 12:00 Amoxicillin/Clavulanate K 875-125 Mg Tab PO 03/18/23 23:59 Q12HR [facility] Enoxaparin Sodium 40 mg 02/05/23 09:00 02/07/23 08:50 Enoxaparin 40 Mg/0.4 Ml Syringe SUB-Q Not Given DAILY [facility] Ampicillin Sodium/Sulbactam Sodium 3 gm in 100 mls @ 200 mls/hr 02/04/23 21:00 02/07/23 09:48 Unasyn 3 Gm/Ns 100 Ml IVPB 02/08/23 07:00 Infused Q6H [facility] Infusion Pantoprazole Sodium 40 mg 02/05/23 09:00 02/07/23 08:49 Pantoprazole Sodium Iv 40 Mg Vial IV PUSH
[2023-02-07 14:00] VITALS: BP 103/67; PULSE 66; RESP 18; TEMP 36.9; O2SAT 97
[2023-02-07 16:09] LABS: NIL 0.02 IU/mL; Quantiferon TB Plus, 1T NEGATIVE (NEGATIVE); TB2-NIL 0.01 IU/mL
[2023-02-07 21:34] VITALS: BP 103/66; PULSE 68; RESP 20; TEMP 36.8; O2SAT 99
[2023-02-07 23:18] LABS: Pneumococcal Antigen Urine Not Detected (Not Detected)
[2023-02-08] MEDS: AMPICILLIN SULB 3 GM/NS 100 ML 3 GM/100 ML VIAL IVPB (04:55)
--- NOTE | 2023-02-08 05:43 | PCRCNOTE ---
Sputum induction not attempted this morning, RN told RT sputum was obtained yesterday morning (02/07/23)
[2023-02-08 05:55] VITALS: BP 111/70; PULSE 61; RESP 18; TEMP 36.9; O2SAT 99
[2023-02-08 07:24] LABS: Basophils Absolute Auto 0.1 K/mm3 (0.0-0.1); Basophils Percent Auto 0.6 % (0.2-1.2); Eosinophils Absolute Auto 0.1 K/mm3 (0-0.3); Eosinophils Percent Auto 1.2 % (0-4.4); Hemoglobin 12.5 g/dL (14.0-18.0); Immature Granulocyte Absolute 0.05 K/mm3 (0.00-0.031); Immature Granulocyte Percent A 0.6 % (0-0.5); Lymphocytes Absolute Auto 1.59 K/mm3 (0.9-3.2); Lymphocytes Percent Auto 17.7 % (18.3-44.2); Mean Corpuscular HGB Conc 32.9 g/dl (32-36); Mean Corpuscular Hemoglobin 29.9 pg (26-34); Mean Corpuscular Volume 90.9 fl (80-100); Mean Platelet Volume 9.2 fl (7.4-10.4); Monocytes Absolute Auto 0.7 K/mm3 (0.1-0.6); Neutrophils Absolute Auto 6.5 K/mm3 (1.3-6.7); Neutrophils Percent Auto 71.9 % (45.5-73.1); Platelet Count Result 360 k/mm3 (150-375); Red Blood Count 4.18 M/mm3 (4.6-6.20); Red Cell Distribution Width 11.7 % (11.5-14.5)
[2023-02-08 07:37] LABS: Alanine Aminotransferase 16 U/L (6-50); Albumin Level 3.7 g/dL (3.5-5.1); Alkaline Phosphatase 65 U/L (38-126); Anion Gap 4 mmol/L (8-16); Aspartate Amino Transferase 23 U/L (17-59); Bilirubin,Total 0.5 mg/dL (0.2-1.3); Blood Urea Nitrogen 10 mg/dL (9-20); Carbon Dioxide 32 mmol/L (22-30); Chloride 99 mmol/L (98-107); Estimated CRCL calculation 104 ml/min; Estimated Glomerular Filt Rate > 60; Glucose 102 mg/dL (65-110); Potassium 4.2 mmol/L (3.4-5.0); Sodium 135 mmol/L (137-145)
[2023-02-08 08:00] VITALS: PULSE 61; RESP 18; O2SAT 99
--- NOTE | 2023-02-08 09:18 | PM.IMPN ---
Progress Note: A&P Assessment and Plan (1) Cavitary pneumonia: Code(s): J18.9 - Pneumonia, unspecified organism; J98.4 - Other disorders of lung Status: Acute Assessment and Plan: CT with thick walled cavitary mass in left lung upper lobe with surrounding ground glass opacities. Initially was given Rocephin and azithromycin for CAP, however, he has severe GERD so there were concerns for silent aspiration so antibiotics were broadened to Unasyn. Sputum negative, MRSA negative, and blood cultures NGTD Given location and cavitation of lesion will add on AFB testing x 3 and quant gold Pulmonology has been consulted and recommendations are appreciated. TB isolation (2) Gastroesophageal reflux disease: Code(s): K21.9 - Gastro-esophageal reflux disease without esophagitis Status: Acute Assessment and Plan: Chronic issue per patient, does not appear to be on medications for this Started on Protonix daily IVP while inpatient Says he has had a stricture dilation in the past which has helped with the reflux. He also says he has had aspiration pneumonia related to this. Plan DVT prophylaxis with SCDs GI prophylaxis with PPI Code status full code Subjective Date/time seen: 02/08/23 09:18 Interval history: 37-year-old male with history of GERD presenting with general feeling not well and found to have cavitary pneumonia. No overnight events noted. No chest pain or shortness of breath. No nausea, vomiting or diarrhea. No fevers or chills. Patient feels much better today. Eager to go home. Review of Systems Review of Systems: 12 point review of systems was assessed and was negative except as noted in the HPI Exam Narrative: General: No acute distress, alert and oriented per baseline HEENT: Atraumatic, normocephalic, mucous membranes moist CV: Regular rate and rhythm, S1, S2 Lungs: Somewhat diminished at bases, scattered crackles, no wheeze Abdomen: Soft, nontender, nondistended Extremities: Normal to inspection Skin: No rashes noted, no lesions or wounds seen Psych: Euthymic, normal affect Objective Data Vital Signs Vital Signs: Vital Signs - 24 hr 02/07/23 14:00 02/07/23 21:34 02/08/23 05:55 Temperature 98.5 F 98.2 F 98.4 F Pulse Rate 66 68 61 Respiratory Rate 18 20 18 Blood Pressure 103/67 103/66 111/70 Pulse Oximetry 97 99 99 Intake/Output Intake/Output: Intake & Output 02/05/23 02/06/23 02/07/23 02/08/23 23:59 23:59 23:59 23:59 Intake Total 1758 1138 1977 200 Output Total 750 Balance 1008 1138 1977 200 Meds/Results Medications: Active Medications Generic Name Dose Route Start Last Admin Trade Name Freq PRN Reason Stop Dose Admin Acetaminophen 650 mg 02/04/23 13:07 02/04/23 21:37 Acetaminophen 325 Mg Tablet PO 650 mg Q4H PRN Administration Mild Pain (1-3) or Fever Albuterol 2.5 mg 02/06/23 10:50 Albuterol Sulfate Neb 2.5 Mg/3 Ml Inh INHALATION Q6HRT PRN Wheezing Amoxicillin/Clavulanate Potassium 1 tablet 02/08/23 12:00 Amoxicillin/Clavulanate K 875-125 Mg Tab PO 03/18/23 23:59 Q12HR [facility] Enoxaparin Sodium 40 mg 02/05/23 09:00 02/07/23 08:50 Enoxaparin 40 Mg/0.4 Ml Syringe SUB-Q Not Given DAILY [facility] Pantoprazole Sodium 40 mg 02/05/23 09:00 02/07/23 08:49 Pantoprazole Sodium Iv 40 Mg Vial IV PUSH 40 mg QAM XIOMY Administration Radiology Results: ITS Impressions Chest CT 02/04/23 18:25 IMPRESSION: 1. Thick-walled cavitary mass in left lung upper lobe with surrounding groundglass opacities, most likely cavitary pneumonia. Malignancy is less likely. Follow-up radiographs are recommended to confirm resolution. Chest X-Ray 02/07/23 06:16 Impression: Left upper lobe cavitary lesion, essentially stable from prior exam. Labs Labs: Laboratory Results - last 24 hr 02/05/23 02/05/23 02/08/23 08:02 12:14 06:56 WBC 9.0 RBC
--- NOTE | 2023-02-08 10:54 | PM.PNPUL ---
Progress Note: A&P Assessment and Plan (1) Cavitary pneumonia: Code(s): J18.9 - Pneumonia, unspecified organism; J98.4 - Other disorders of lung Status: Acute Assessment and Plan: Patient presented with acute illness characterized by cough fatigue and night sweats. Chest imaging studies have shown cavitary pneumonia in the apicoposterior segment of the left upper lobe. The patient has history of severe GERD which in conjunction with a location of the cavity suggest probably aspiration pneumonia. Patient has improved on antibiotics to cover anaerobes. The plan is to discharge patient on Augmentin for at least 2 more weeks. Patient will need to return to pulmonary clinic in approximately 2 weeks for follow-up. I gave him the pulmonary business card to call to make an appointment. Will sign off please call with any questions. (2) Gastroesophageal reflux disease: Code(s): K21.9 - Gastro-esophageal reflux disease without esophagitis Status: Acute Subjective Date/time seen: 02/08/23 10:54 Interval history: This 37-year-old man presented with cough generalized fatigue and sputum production. He was diagnosed with left upper lobe cavitary pneumonia pneumonia. The patient has been on antibiotics and has improved significantly. He continues to have a mild cough but no sputum production. He has no shortness of breath. He remains on room air. Eager to go home Review of Systems Review of Systems: All systems reviewed & are unremarkable except as noted in HPI and below (HPI and below) Exam Narrative: GENERAL APPEARANCE: Well developed, well nourished, alert and cooperative, and appears to be in no acute distress SKIN: Inspection of the skin reveals no rashes, ulcerations or petechiae. HEENT: Sclerae anicteric and conjunctivae pink and moist. Extraocular movements were intact and pupils were equal, round, and reactive to light. The oral mucosa, hard and soft palate, tongue and posterior pharynx were normal. NECK: Supple. There was no thyroid enlargement, and no tenderness, or masses were felt. CHEST: Normal AP diameter and normal contour without any kyphoscoliosis. LUNGS: Auscultation of the lungs revealed normal breath sounds without any other adventitious sounds or rubs. CARDIAC: There was a regular rate and rhythm without any murmurs, gallops, rubs. ABDOMEN: Soft and nontender with normal bowel sounds. There was no organomegaly. LYMPH NODES: No lymphadenopathy was appreciated in the neck. EXTREMITIES: No cyanosis, clubbing or edema. NEUROLOGIC: Alert and oriented x 3. Normal affect. Objective Data Vital Signs Vital Signs: Vital Signs - 24 hr 02/07/23 14:00 02/07/23 21:34 02/08/23 05:55 Temperature 36.9 C 36.8 C 36.9 C Pulse Rate 66 68 61 Respiratory Rate 18 20 18 Blood Pressure 103/67 103/66 111/70 Pulse Oximetry 97 99 99 Intake/Output Intake/Output: Intake & Output 02/05/23 02/06/23 02/07/23 02/08/23 23:59 23:59 23:59 23:59 Intake Total 1758 1138 1977 540 Output Total 750 Balance 1008 1138 1977 Meds/Results Medications: Active Medications Generic Name Dose Route Start Last Admin Trade Name Freq PRN Reason Stop Dose Admin Acetaminophen 650 mg 02/04/23 13:07 02/04/23 21:37 Acetaminophen 325 Mg Tablet PO 650 mg Q4H PRN Administration Mild Pain (1-3) or Fever Albuterol 2.5 mg 02/06/23 10:50 Albuterol Sulfate Neb 2.5 Mg/3 Ml Inh INHALATION Q6HRT PRN Wheezing Amoxicillin/Clavulanate Potassium 1 tablet 02/08/23 12:00 Amoxicillin/Clavulanate K 875-125 Mg Tab PO 03/18/23 23:59 Q12HR [facility] Enoxaparin Sodium 40 mg 02/05/23 09:00 02/08/23 10:40 Enoxaparin 40 Mg/0.4 Ml Syringe SUB-Q Not Given DAILY [facility] Pantoprazole Sodium 40 mg 02/05/23 09:00 02/08/23 10:42 Pantoprazole Sodium Iv 40 Mg Vial IV PUSH Not Given QAM [facility] Radiology Results: ITS Impressions Chest CT 02/04/23 18:25 IMPRESSION: 1. Thic
[2023-02-08] MEDS: AMOXICILLIN/CLAVULANATE K 875-125 MG TAB 1 TABLET PO (12:24)
--- NOTE | 2023-02-08 13:56 | PM.DS ---
DS: Admitting Diagnosis Discharge Date 02/08/23 Admitting Diagnosis sob DS: Discharge Diagnosis Discharge Diagnosis (1) Cavitary pneumonia: Code(s): J18.9 - Pneumonia, unspecified organism; J98.4 - Other disorders of lung Status: Acute Assessment and Plan: CT with thick walled cavitary mass in left lung upper lobe with surrounding ground glass opacities. Initially was given Rocephin and azithromycin for CAP, however, he has severe GERD so there were concerns for silent aspiration so antibiotics were broadened to Unasyn. Sputum negative, MRSA negative, and blood cultures NGTD Given location and cavitation of lesion will add on AFB testing x 3 and quant gold Pulmonology has been consulted and recommendations are appreciated. TB isolation (2) Gastroesophageal reflux disease: Code(s): K21.9 - Gastro-esophageal reflux disease without esophagitis Status: Acute Assessment and Plan: Chronic issue per patient, does not appear to be on medications for this Started on Protonix daily IVP while inpatient Says he has had a stricture dilation in the past which has helped with the reflux. He also says he has had aspiration pneumonia related to this. Plan DVT prophylaxis with SCDs GI prophylaxis with PPI Code status full code DS: Summary Hospital Course Hospital Course: 37-year-old male with history of GERD presenting with general feeling not well and found to have cavitary pneumonia. Patient presented with acute illness characterized by cough fatigue and night sweats.? Chest imaging studies have shown cavitary pneumonia in the apicoposterior segment of the left upper lobe.? The patient has history of severe GERD which in conjunction with a location of the cavity suggest probably aspiration pneumonia.? Patient has improved on antibiotics to cover anaerobes.? The plan is to discharge patient on Augmentin for at least 2 more weeks.? Patient will need to return to pulmonary clinic in approximately 2 weeks for follow-up. All symptoms resolved, patient was discharged in stable condition with close outpatient follow-up. Please see above and med rec for details. Time Spent with Patient Time attestation: Total time spent providing and/or coordinating discharge services: Exam Narrative: General: No acute distress, alert and oriented per baseline HEENT: Atraumatic, normocephalic, mucous membranes moist CV: Regular rate and rhythm, S1, S2 Lungs: Somewhat diminished at bases, scattered crackles, no wheeze Abdomen: Soft, nontender, nondistended Extremities: Normal to inspection Skin: No rashes noted, no lesions or wounds seen Psych: Euthymic, normal affect DS: Data Data Completed and Pending Labs on day of discharge: Labs from last 24 hours 02/08/23 02/05/23 02/05/23 06:56 12:14 08:02 WBC 9.0 RBC 4.18 L Hgb 12.5 L Hct 38.0 L MCV 90.9 MCH 29.9 MCHC 32.9 RDW 11.7 Plt Count 360 MPV 9.2 Immature Gran % (Auto) 0.6 H Neut % (Auto) 71.9 Lymph % (Auto) 17.7 L [place] % (Auto) 8.0 Eos % (Auto) 1.2 Baso % (Auto) 0.6 Lymph # (Auto) 1.59 [place] # (Auto) 0.7 H Eos # (Auto) 0.1 Baso # (Auto) 0.1 Abs Immat Gran (auto) 0.05 H Absolute Neuts (auto) 6.5 Absolute Nucleated RBC 0.0 Nucleated RBC % 0.0 Sodium 135 L Potassium 4.2 Chloride 99 Carbon Dioxide 32 H Anion Gap 4 L BUN 10 Creatinine 0.80 Estim Creat Clear Calc 104 Estimated GFR > 60 Glucose 102 Calcium 9.0 Total Bilirubin 0.5 AST 23 ALT 16 Alkaline Phosphatase 65 Total Protein 8.0 Albumin 3.7 Urine Pneumococcal Ag Not detected TB Test (QFT) Gold Plus Negative TB Test (QFT) Nil 0.02 TB Test Mitogen - Nil 7.90 TB Test Ag - Nil 1 0.00 TB Test Ag - Nil 2 0.01 Preliminary micro results at discharge 02/06/23 16:49 Acid Fast Bacilli Culture - Preliminary Sputum 02/05/23
[2023-02-09 14:43] LABS: Mycoplasma IgM Antibody Titer 241 U/mL (<770)
[2023-02-10 06:35] LABS: Legionella pneumophila Ag Ur Not Detected (Not Detected)
== END 2023-02-08 14:30 | disposition home or self-care (01) | DRG 195 ==
LOC: ANHED 13:15 → ANH3MEDSUR 18:21
PROVIDERS: Emergency Medicine; Nurse Practitioner Acute Care; Physician Assistant; Admitting Provider Hospitalist; Emergency Provider Emergency Medicine; Visit Provider Student in an Organized Health Care Education/Training Program
DX: J18.8 Other pneumonia, unspecified organism (principal); J98.4 Other disorders of lung; J69.0 Pneumonitis due to inhalation of food and vomit; K21.9 Gastro-esophageal reflux disease without esophagitis
CPT/HCPCS: 36415; 71045; 71046; 71250; 80048; 80053; 83605; 83735; 84145; 85025; 85027; 86140; 86480; 86738; 87015; 87040; 87070; 87081; 87116; 87205; 87206; 87426; 87449; 87899; 93005; 94640; 99212; 99285; A9270; C9113; C9803; G0463; J0295; J0456; J0696; J1650; J7030

== ENCOUNTER 2023-04-11 13:38 | Outpatient (CLI) | payer SELFPAY ==
--- NOTE | ~2023-04-11 | XR_ITS ---
EXAMINATION: XR chest 2V 04/11/2023 14:03 INDICATION: Follow-up pneumonia. PROCEDURE: 2 view chest COMPARISON: 02/07/2023 FINDINGS: Near-complete resolution of left upper lobe pneumonia. The cardiomediastinal silhouette is within normal limits. There are no pleural effusions. There is no pneumothorax suspected. IMPRESSION: 1: Near complete resolution of left upper lobe pneumonia.. Reviewed, dictated and finalized at location A. [employer]
== END 2023-04-11 13:39 ==
PROVIDERS: PCP Family Medicine; Visit Provider Family Medicine
DX: R93.89 Abnormal findings on diagnostic imaging of other specified body structures (principal)
CPT/HCPCS: 71046

== ENCOUNTER 2025-01-19 08:44 | Outpatient (CLI) | payer OTHER, SELFPAY | END 2025-01-19 08:45 | disposition home or self-care (01) | LOC: ANHAUDASC 08:45 | PROVIDERS: PCP Family Medicine; Visit Provider Family Medicine | DX: H90.3 Sensorineural hearing loss, bilateral (principal) | CPT/HCPCS: 92557; 92567 ==